=== PATIENT | male | born 1985 | race Hispanic/Latino ===

== ENCOUNTER 2024-08-22 18:09 | Emergency (ER) | payer BC ==
[~2024-08-22] VITALS: Ht 172.7 cm; Wt 117.0 kg
[2024-08-22] MEDS ORDERED: Solu-medROL 125MG VIAL IVP SCH (19:00)
[2024-08-22] MEDS ORDERED: DiphenhydrAMINE HCL 50 MG/ML VIAL IV ONE (19:00)
[2024-08-22] MEDS ORDERED: ketOROlac 15MG/ML VIAL (15MG/ML) IV ONE (19:00)
[2024-08-22] MEDS ORDERED: METH4TAB3 PO (19:28)
[2024-08-22] MEDS ORDERED: DIPH-1242 PO (19:28)
--- NOTE | 2024-08-22 19:34 | ERN ---
General Chief Complaint: Allergic Reaction Stated Complaint: BEE STING ALLERGIC Time Seen by MD: 18:11 Time Seen by Midlevel: 18:11 Source: patient History of Present Illness Initial Comments The patient is a 39-year-old male presenting to the emergency department after he was stung by a bee to his left forearm approximately 30 minutes prior to arrival. 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 Today he denies any shortness of breath. He states he was able to remove the stinger and has no complaints but still wanted further evaluation. Allergies: Coded Allergies: bee venom protein (honey bee) (Unverified Allergy, Unknown, 08/22/24) Past Medical History Past Medical History: No Pertinent History Past Surgical History: None ROS Dictation CONSTITUTIONAL: Negative except for HPI HEAD/FACE: Negative except for HPI EENT: Negative except for HPI RESPIRATORY: Negative except for HPI GASTROINTESTINAL/ABDOMINAL: Negative except for HPI GENITOURINARY: Negative except for HPI MUSCULOSKELETAL: Negative except for HPI INTEGUMENTARY: Negative except for HPI NEUROLOGICAL/PSYCH: Negative except for HPI HEMATOLOGIC/LYMPHATIC: Negative except for HPI All Systems Negative, Except as noted above. 13 point review of systems assessed and all negative except for above. Physical Exam Physical Exam Dictation Vital Signs reviewed General Appearance: Alert, oriented x 3, no acute distress, well developed, nourished. Head and Face: non-traumatic. Eyes: PERRL, pink conjunctivas, eyelid no trauma, anterior chamber with arcus senilis. Ears: Pinnas intact and no signs of trauma or erythema ear canals clear and no discharge TM no erythema Nose: No discharge, no bleeding. Oropharynx: Mouth normal, tongue pink, pharynx clear,no erythema, tonsils no exudates, no abscesses noted, mucous membrane moist Neck: Supple, non-tender, no thyromegaly, no masses, no JVD, no bruits Breast:Deferred Chest:No tenderness, no crepitus, no paradoxical movement, no retractions Lungs:Clear, well-ventilated, symmetric, no rales, no wheezing, no rhonchi, no stridor, good breath sounds bilaterally Heart: Regular rate, regular rhythm, no murmur, no gallops Vascular: no peripheral edema, Abdomen: Soft, positive bowel sounds, nondistended, no guarding, nontender, no rebound, no masses no hepatomegaly, no splenomegaly, no Rosa's sign, no hernias. Rectal: Deferred Genital: Deferred Neurological: Normal speech, motor function intact, sensory function intact Musculoskeletal: Neck nontender, full range of motion, back nontender, full range of motion, Extremities: nontender, full range of motion Skin: Bee sting to left forearm with mild localized swelling and erythema Lymphatic: Deferred MDM MDM: The patient is a 39-year-old male presenting to the emergency department after he was stung by a bee to his left forearm approximately 30 minutes prior to arrival. 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 Today he denies any shortness of breath. He states he was able to remove the stinger and has no complaints but still wanted further evaluation. Initial vital signs are stable. O2 saturation is 98% on room air. The patient was in no acute respiratory distress. There was a localized reaction to his left forearm. The patient was given IM medication and observed in the ER. Patient is stable for discharge Differential diagnosis: Bee sting, allergic reaction, anaphylaxis There are no social concerns with this patient. Prescription drug management Prescriptions will include: Medrol pack, Benadryl Medical management and examination interpretation discussions were had by me with other qualified healthcare professionals as indicated for the patient's care. ED Course Orders Procedure Category Date Status Time Diphenhydramine Hcl PHA 08/22/24 Complete (Benadryl Inj) 19:00 Methylprednisolone PHA 08/22/24 In Process Succ 125mg (Solu-Medr 19:00 Ketorolac PHA 08/22/24 Complete Tromethamine 15mg/Ml 19:00 Current Medications Medications (Trade) Dose Ordered Sig/Lori Route PRN Reason Start Time Stop Time Status Last Admin Dose Admin Diphenhydramine HCl (BENAdryl INJ) 25 mg ONCE ONCE IV 08/22/24 19:00 08/22/24 19:01 DC Ketorolac Tromethamine (toRADol) 15 mg ONCE ONCE IV 08/22/24 19:00 08/22/24 19:01 DC Methylprednisolone Sodium Succinate (Solu-medROL 125MG) 80 mg Q8H IVP 08/22/24 19:00 09/21/24 18:59 Vital Signs Date Time Temp Pulse Resp B/P (MAP) Pulse Ox O2 Delivery O2 Flow Rate FiO2 4/27/25 18:35 97.2 68 18 133/80 100 Room Air 0 DX & DISP Disposition: Discharge Departure Impression: Primary Impression: Bee sting Condition: Stable Scripts Diphenhydramine HCl (Benadryl) 25 Mg Cap 25 MG PO BID for 5 Days, #10 CAP Prov: ALEX MICHEL 08/22/24 Methylprednisolone (Medrol) 4 Mg Tab.ds.pk 1 TAB PO AD for 6 Days, #21 TAB 0 Refills 6 on day 1 then reduce by one tablet daily until gone Prov: ALEX MICHEL 08/22/24 Referrals: SELF,REFERRAL (PCP) Time of Disposition: 19:30 I have reviewed the case, and I agree with, Diagnosis and Plan I performed the substantive portion of the visit. I have reviewed and personally made and approve the management plan that is documented in the note by myself or the JAZMYNE. I acknowledge for responsibility for the patient's management plan. ALEX MICHEL Aug 22, 2024 19:34
[2024-08-22] MEDS: ketOROlac 15MG/ML VIAL (15MG/ML) IM ONE (19:41)
[2024-08-22] MEDS: DiphenhydrAMINE HCL 50 MG/ML VIAL IM ONE (19:41)
[2024-08-22] MEDS: dexaMETHasone SOD PHOSPHATE 4 MG/ML 1ML VIAL IM ONE (19:45)
[2024-08-22 19:59] VITALS: BP 124/74; PULSE 62; RESP 18; TEMP 97.2; O2SAT 100
== END 2024-08-22 20:00 | disposition home or self-care (01) ==
LOC: EDH 18:09
DX: T63.441A Toxic effect of venom of bees, accidental (unintentional), initial encounter (principal); R00.2 Palpitations; Z91.030 Bee allergy status; Y92.89 Other specified places as the place of occurrence of the external cause
CPT/HCPCS: 99284; 96372 ×3; J1100; J1885; J2919; J1200

== ENCOUNTER 2024-08-23 16:32 | Emergency (ER) | payer BC ==
[~2024-08-23] VITALS: Ht 172.7 cm; Wt 116.1 kg
[~2024-08-23 16:32] MED LIST: DIPH-1242 PO; METH4TAB3 PO
--- NOTE | 2024-08-23 16:43 | ERN ---
ED Note History of Present Illness Stated Complaint: ANXIETY Chief Complaint: Anxiety/Panic Attack Time Seen by MD: 16:36 Dictation: 39-YEAR-OLD FEMALE COMING IN WITH A ANXIETY PALPITATIONS ONSET AT 10 30 THIS MORNING. HE STATES HE WAS TREATED FOR A BEE STING YESTERDAY TO [facility] RECEIVED BENADRYL PEPCID SOLU-MEDROL. STATES HE WENT HOME FEELING FINE. STATES HE WOKE UP THIS MORNING TAKE HIS MEDICATIONS AT 10:30 AND WAS FEELING ANXIOUS, SO HE DECIDED TO COME BACK IN THIS AFTERNOON FOR FOLLOW UP. HE IS CURRENTLY ALERT AND ORIENTED X4 SPEECH IS CLEAR NO SI OR HI. DENIES ANY HISTORY OF PSYCHIATRIC ILLNESS. NO CHEST PAIN NO BACK Allergies: Coded Allergies: bee venom protein (honey bee) (Unverified Allergy, Unknown, 08/22/24) Home Meds Active Scripts Diphenhydramine HCl (Benadryl) 25 Mg Cap, 25 MG PO BID for 5 Days, #10 CAP Prov:ALEX MICHEL 08/22/24 Methylprednisolone (Medrol) 4 Mg Tab.ds.pk, 1 TAB PO AD for 6 Days, #21 TAB 0 Refills 6 on day 1 then reduce by one tablet daily until gone Prov:ALEX MICHEL 08/22/24 Past Medical History Past Medical History: No Pertinent History Surgical History: None RN Note Reviewed/Agreed w/PFSH: Yes Review of System Dictation CONSTITUTIONAL: NEGATIVE EXCEPT FOR HPI HEAD/FACE: NEGATIVE EXCEPT FOR HPI EENT: NEGATIVE EXCEPT FOR HPI RESPIRATORY: NEGATIVE EXCEPT FOR HPI PALPITATIONS GASTROINTESTINAL/ABDOMINAL: NEGATIVE EXCEPT FOR HPI GENITOURINARY: NEGATIVE EXCEPT FOR HPI MUSCULOSKELETAL: NEGATIVE EXCEPT FOR HPI INTEGUMENTARY: NEGATIVE EXCEPT FOR HPI NEUROLOGICAL/PSYCH: NEGATIVE EXCEPT FOR HPI ANXIETY HEMATOLOGIC/LYMPHATIC: NEGATIVE EXCEPT FOR HPI ALL SYSTEMS NEGATIVE, EXCEPT NOTED ABOVE. 13 POINT REVIEW OF SYSTEMS ASSESSED AND ALL NEGATIVE EXCEPT FOR ABOVE. Initial Vital Sign VS Vital Signs Date Time Temp Pulse Resp B/P (MAP) Pulse Ox O2 Delivery O2 Flow Rate FiO2 08/23/24 16:34 97.9 77 16 128/66 98 Room Air 0 Physical Exam Dictation VITAL SIGNS REVIEWED GENERAL APPEARANCE: ALERT, ORIENTED X 3, NO ACUTE DISTRESS, WELL DEVELOPED, NOURISHED. OBESE HEAD AND FACE: NON-TRAUMATIC. EYES: PERRL, PINK CONJUNCTIVAS, EYELID NO TRAUMA, ANTERIOR CHAMBER WITH ARCUS SENILIS. EARS: PINNAS INTACT AND NO SIGNS OF TRAUMA OR ERYTHEMA EAR CANALS CLEAR AND NO DISCHARGE TM NO ERYTHEMA NOSE: NO DISCHARGE, NO BLEEDING. OROPHARYNX: MOUTH NORMAL, TONGUE PINK, PHARYNX CLEAR,NO ERYTHEMA, TONSILS NO EXUDATES, NO ABSCESSES NOTED, MUCOUS MEMBRANE MOIST NECK: SUPPLE, NON-TENDER, NO THYROMEGALY, NO MASSES, NO JVD, NO BRUITS BREAST:DEFERRED CHEST:NO TENDERNESS, NO CREPITUS, NO PARADOXICAL MOVEMENT, NO RETRACTIONS LUNGS:CLEAR, WELL-VENTILATED, SYMMETRIC, NO RALES, NO WHEEZING, NO RHONCHI, NO STRIDOR, GOOD BREATH SOUNDS BILATERALLY HEART: REGULAR RATE, REGULAR RHYTHM, NO MURMUR, NO GALLOPS VASCULAR: NO PERIPHERAL EDEMA, ABDOMEN: SOFT, POSITIVE BOWEL SOUNDS, NONDISTENDED, NO GUARDING, NONTENDER, NO REBOUND, NO MASSES NO HEPATOMEGALY, NO SPLENOMEGALY, NO SALAS'S SIGN, NO HERNIAS. RECTAL: DEFERRED GENITAL: DEFERRED NEUROLOGICAL: NORMAL SPEECH, MOTOR FUNCTION INTACT, SENSORY FUNCTION INTACT DENIES SI OR HI. EUTHYMIC AFFECT MUSCULOSKELETAL: NECK NONTENDER, FULL RANGE OF MOTION, BACK NONTENDER, FULL RANGE OF MOTION, EXTREMITIES: NONTENDER, FULL RANGE OF MOTION SKIN: COLOR PINK, DRY, NO TURGOR, NO RASH, NO LACERATIONS, NO ABRASIONS, NO CONTUSIONS. LYMPHATIC: DEFERRED Results (Laboratory/Radiology) Labs Reviewed?: Yes EKG: (+) NSR EKG Comment: NORMAL SINUS RHYTHM/HEART RATE 93/AXIS NORMAL/NO ED Course ED Course Orders Procedure Category Date Status Time 12 Lead Ekg Tracing- EKG 08/23/24 Complete Technical 16:40 Vital Signs Date Time Temp Pulse Resp B/P (MAP) Pulse Ox O2 Delivery O2 Flow Rate FiO2 08/23/24 16:34 97.9 77 16 128/66 98 Room Air 0 1655/PATIENT WAS MADE AWARE THAT I HAVE NO LABS THAT WOULD CORRELATE BETWEEN THE MEDICATIONS GIVEN HIM YESTERDAY AND HIS FEELINGS OF ANXIETY THIS MORNING AT 10:30. EKGS COMPLETELY NORMAL DISCHARGED HOME WITH LIST OF PRIMARY CARE DOCTORS ON STAFF TO FOLLOW UP IN THE NEXT 1-2 DAYS. STOP THE MEDICATIONS HE WAS GIVEN YESTERDAY Medical Decision Making MDM MEDICAL DECISION-MAKING WAS BASED ON EKG TO RULE OUT ARRHYTHMIA EKG NORMAL DISCHARGED HOME WITH POSSIBLE MEDICATION SIDE EFFECT AND/OR ANXIETY GIVEN A LIST OF THE PRIMARY CARE DOCTORS ON STAFF FOR FOLLOW UP DX & DISP Disposition: Discharge Departure Impression: Primary Impression: Anxiety reaction Condition: Stable Additional Instructions: FOLLOW-UP WITH PRIMARY CARE PROVIDER IN 1 TO 2 DAYS. TAKE MEDICATIONS DIRECTED HERE IN THE EMERGENCY ROOM. OKAY TO CONTINUE HOME MEDICATIONS UNLESS OTHERWISE DISCUSSED DURING YOUR VISIT IN THE EMERGENCY ROOM TODAY. RETURN TO YOUR NEAREST EMERGENCY ROOM IF SYMPTOMS WORSEN OR IF THERE IS NO IMPROVEMENT. CALL 911 IF YOU NEED IMMEDIATE ASSISTANCE. TAKE TYLENOL OR MOTRIN [id number] NEEDED AND IF NO CONTRAINDICATIONS ARE PRESENT. INCREASE ORAL HYDRATION. A WOUND CULTURE OR URINE CULTURE WAS ORDERED HERE IN THE EMERGENCY ROOM DEPARTMENT PLEASE FOLLOW-UP WITH PRIMARY CARE PROVIDER AND ADVISE THEM TO GET REPEAT PORTS FROM OUR FACILITY. IF YOU HAD ANY KELLY WRAP/SPLINTS THAT WERE APPLIED HERE, PLEASE DO NOT REMOVE THEM UNTIL YOU SEE YOUR PRIMARY CARE OR SPECIALTY. STOP THE MEDICATIONS FROM YOUR ER VISIT YESTERDAY., FOLLOW UP WITH YOUR PRIMARY CARE DOCTOR IN THE NEXT ONE TWO DAYS FOR MANAGEMENT. Referrals: SELF,REFERRAL (PCP) Time of Disposition: 16:54 I have reviewed the case, and I agree with, Diagnosis and Plan JODY MCCONNELL NP Aug 23, 2024 16:43
--- NOTE | 2024-08-23 16:49 | EKG ---
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
[2024-08-23 16:55] VITALS: BP 125/66; PULSE 75; RESP 16; TEMP 98.1; O2SAT 98
== END 2024-08-23 17:05 | disposition home or self-care (01) ==
LOC: EDH 16:32
DX: F41.0 Panic disorder [episodic paroxysmal anxiety] (principal); Z91.030 Bee allergy status
CPT/HCPCS: 93005; 99284